=== PATIENT | female | born 1995 | race Caucasian/White ===

== ENCOUNTER → 2017-01-20 | Outpatient (CLI) | payer OTHER ==
[~2017-01-20] VITALS: Ht 165.1 cm; Wt 71.0 kg
[~2017-01-20] MED LIST: VITAMIN AND MI1 EACH PO
[2017-01-20 16:01] VITALS: BP 98/53
== END | disposition home or self-care (01) ==
LOC: IVINF 15:30
DX: Z31.82 Encounter for Rh incompatibility status (principal); Z3A.26 26 weeks gestation of pregnancy
CPT/HCPCS: 96372

== ENCOUNTER 2017-04-06 21:32 | Inpatient (IN) | payer OTHER ==
[~2017-04-06] VITALS: Ht 165.1 cm; Wt 72.5 kg
[2017-04-06 22:04] VITALS: BP 107/66
[2017-04-06] MEDS ORDERED: IRON325 M1 PO (22:24)
[2017-04-06] MEDS ORDERED: NICODERM CQ1 EAC1 TD (22:25)
[2017-04-06 22:50] LABS: BASOPHIL COUNT 0.1 K/uL (0-0.1); EOSINOPHIL (%) 2.1 % (0-5); EOSINOPHIL COUNT 0.4 K/uL (0-0.3); HEMATOCRIT 32.1 % (36.0-46.0); IMMATURE GRANULOCYTE COUNT 0.2 K/uL; INSTRUMENT ABS NEUTROPHIL CT 13.3 K/uL; LYMPHOCYTE COUNT 3.2 K/uL (1.0-2.8); MCH 32.2 PG (29.0-34.0); MCHC 35.8 G/DL (30.0-36.0); MCV 89.9 FL (83-99); MONOCYTE (%) 6.2 % (3-12); MONOCYTE COUNT 1.1 K/uL (0-0.8); NEUTROPHIL (%) 72.8 % (45-76); NEUTROPHIL COUNT 13.3 K/uL (1.8-6.4); PLATELET COUNT 236 K/uL (156-360); RBC DIS.WIDTH-CV 13.2 % (11.8-14.6); RBC DIS.WIDTH-SD 43.3 % (39-53); RED BLOOD COUNT 3.57 M/uL (3.80-5.20); WHITE BLOOD COUNT 18.3 K/uL (4.1-10.2)
[2017-04-06 23:07] VITALS: BP 111/64
[2017-04-06 23:57] VITALS: BP 104/63
[2017-04-07] VITALS (27 sets, daily range): BP systolic 86–116; BP diastolic 48–72
[2017-04-07 03:33] LABS: CANDIDA DNA PROBE NEGATIVE; GARDNERELLA DNA PROBE POSITIVE; INTERNAL CONTROL VALID? YES
[2017-04-08 06:03] LABS: BASOPHIL COUNT 0.1 K/uL (0-0.1); EOSINOPHIL (%) 1.8 % (0-5); EOSINOPHIL COUNT 0.4 K/uL (0-0.3); HEMATOCRIT 29.1 % (36.0-46.0); IMMATURE GRANULOCYTE (%) 0.8 % (0.0-0.7); IMMATURE GRANULOCYTE COUNT 0.2 K/uL; INSTRUMENT ABS NEUTROPHIL CT 14.9 K/uL; LYMPHOCYTE COUNT 2.8 K/uL (1.0-2.8); MCH 32.7 PG (29.0-34.0); MCHC 36.1 G/DL (30.0-36.0); MCV 90.7 FL (83-99); MEAN PLAT.VOLUME 11.1 uM^3 (9.5-12.4); MONOCYTE COUNT 1.4 K/uL (0-0.8); NEUTROPHIL (%) 75.9 % (45-76); NEUTROPHIL COUNT 14.9 K/uL (1.8-6.4); PLATELET COUNT 195 K/uL (156-360); RBC DIS.WIDTH-CV 13.2 % (11.8-14.6); RBC DIS.WIDTH-SD 43.5 % (39-53); RED BLOOD COUNT 3.21 M/uL (3.80-5.20); WHITE BLOOD COUNT 19.6 K/uL (4.1-10.2)
[2017-04-08 07:56] VITALS: BP 109/54
[2017-04-08] MEDS ORDERED: DOCUSATE SODIU100 MG PO (09:36)
[2017-04-08] MEDS ORDERED: IBUPROFEN800 MG PO (09:36)
[2017-04-08] MEDS ORDERED: CAMILA0.35 MG PO (09:38)
[2017-04-08 12:15] LABS: CHLAMYDIA TRACHOMATIS NEGATIVE; NEISSERIA GONORRHOEAE NEGATIVE
[2017-04-08 15:23] VITALS: BP 103/58
[2017-04-08 23:13] VITALS: BP 103/59
[2017-04-09 06:44] VITALS: BP 106/61
== END 2017-04-09 12:06 | disposition home or self-care (01) | DRG 775 ==
LOC: LDRP-OP → 2WEST 21:34 → LDRP-OP 05-13 12:57
PROVIDERS: Advanced Practice Midwife; Obstetrics & Gynecology
PROC: 10E0XZZ Delivery of Products of Conception, External Approach (ICD-10-PCS; principal; 2017-04-07)
PROC: 00HU33Z Insertion of Infusion Device into Spinal Canal, Percutaneous Approach (ICD-10-PCS; principal; 2017-04-07)
PROC: 3E0S3BZ Introduction of Anesthetic Agent into Epidural Space, Percutaneous Approach (ICD-10-PCS; principal; 2017-04-07)
DX: O42.92 Full-term premature rupture of membranes, unspecified as to length of time between rupture and onset of labor (principal); O36.0930 Maternal care for other rhesus isoimmunization, third trimester, not applicable or unspecified; Z3A.39 39 weeks gestation of pregnancy; Z37.0 Single live birth; O99.334 Smoking (tobacco) complicating childbirth; F17.200 Nicotine dependence, unspecified, uncomplicated; O99.814 Abnormal glucose complicating childbirth
CPT/HCPCS: 83030; 85025; 86850; 86900; 86901; 87480; 87491; 87510; 87591; 87660; C1755; G0378; J2790; J3010; J7120